=== PATIENT | female | born 1985 | race Caucasian/White ===

== ENCOUNTER 2016-10-07 07:55 | Emergency (ER) | payer SELFPAY ==
--- NOTE | 2016-10-07 08:12 | ER Document Report ---
ED GI/ - General Chief Complaint: Vaginal Bleeding Stated Complaint: VAGINAL BLEEDING Time seen by provider: 08:12 Mode of Arrival: Ambulatory Information source: Patient Notes: 30-year-old female complaining of vaginal bleeding that started as spotting yesterday and became redder and heavier this morning. She had some low back pain and suprapubic discomfort yesterday. She found out recently that she was with 3 home test. LMP September 08. This would be . No vaginal discharge. No dysuria. TRAVEL OUTSIDE OF THE [place] IN LAST 30 DAYS: No - Related Data Allergies/Adverse Reactions: promethazine [From Phenergan] Allergy (Verified 10/07/16 07:58) Past Medical History - General Information source: Patient - Social History Smoking Status: Current Every Day Smoker Frequency of alcohol use: None Drug Abuse: None Lives with: Family Family History: Reviewed & Not Pertinent Patient has suicidal ideation: No Patient has homicidal ideation: No - Medical History Medical History: Other - Second gestational diabetes Renal/ Medical History: Denies: Hx Peritoneal Dialysis Past Surgical History: Reports: Hx Appendectomy Review of Systems - Review of Systems Constitutional: No symptoms reported EENT: No symptoms reported Cardiovascular: No symptoms reported Respiratory: No symptoms reported Gastrointestinal: No symptoms reported Genitourinary: No symptoms reported Female Genitourinary: See HPI Musculoskeletal: No symptoms reported Skin: No symptoms reported Hematologic/Lymphatic: No symptoms reported Neurological/Psychological: No symptoms reported Physical Exam - Vital signs Vitals: Temp Pulse Resp BP Pulse Ox 98.1 F 84 16 133/97 H 100 10/07/16 07:59 10/07/16 07:59 10/07/16 07:59 10/07/16 07:59 10/07/16 07:59 Interpretation: Normal - General General appearance: Appears well, Alert In distress: None - HEENT Head: Normocephalic, Atraumatic Eyes: Normal Pupils: PERRL Neck: Supple - Respiratory Respiratory status: No respiratory distress Chest status: Nontender Breath sounds: Normal Chest palpation: Normal - Cardiovascular Rhythm: Regular Heart sounds: Normal auscultation Murmur: No - Abdominal Inspection: Normal Distension: No distension Bowel sounds: Normal Tenderness: Nontender Organomegaly: No organomegaly - Back Back: Normal, Nontender. No: CVA tenderness - Extremities General upper extremity: Normal inspection, Nontender, Normal color, Normal ROM , Normal temperature General lower extremity: Normal inspection, Nontender, Normal color, Normal ROM , Normal temperature, Normal weight bearing. No: Diana's sign - Neurological Neuro grossly intact: Yes Cognition: Normal Orientation: AAOx4 Ramone Coma Scale Eye Opening: Spontaneous Ramone Coma Scale Verbal: Oriented Ramone Coma Scale Motor: Obeys Commands [place] Coma Scale Total: 15 Speech: Normal Motor strength normal: LUE, RUE, LLE, RLE Sensory: Normal - Psychological Associated symptoms: Normal affect, Tearful - Skin Skin Temperature: Warm Skin Moisture: Dry Skin Color: Normal Skin irregularity: negative: Rash Course - Re-evaluation Re-evalutation: 10/07/16 10:18 Serum quantitative hCG is negative. Oh positive blood. CBC is normal. Urinalysis is normal no infection. She will call me back for the STD results. - Vital Signs Vital signs: Temp Pulse Resp BP Pulse Ox 98.1 F 84 16 136/78 H 100 10/07/16 07:59 10/07/16 07:59 10/07/16 07:59 10/07/16 08:33 10/07/16 07:59 - Laboratory Result Diagrams: 10/07/16 08:40 Laboratory results interpreted by me: 10/07/16 08:40 Urine Protein 30 H Urine Blood LARGE H Discharge - Discharge Clinical Impression: mild suprapubic discomfort, Delayed menses Condition: Good Disposition: HOME, SELF-CARE Instructions: Vaginal Bleeding ([facility]) Additional Instructions: Call me this afternoon at [phone] for the STD culture results Return to the emergency room any concerns Copy of labwork given to you Please complete the patient satisfaction survey if you get one, and return it.. If you do not receive a survey, then you can go to the [facility] website, [email or web address] and place your comments about your very good care. Thank you very much. It was a pleasure being your medical provider today. Referrals: JOSH DEL TORO FNP-C [Primary Care Provider] - Follow up as needed
[2016-10-07 09:01] LABS: ABSOLUTE BASOPHILS # (AUTO) 0.1 10^3/uL (0.0-0.2); ABSOLUTE EOSINOPHILS # (AUTO) 0.1 10^3/uL (0.0-0.6); ABSOLUTE LYMPHOCYTES (AUTO) 1.7 10^3/uL (0.5-4.7); ABSOLUTE MONOCYTES (AUTO) 0.4 10^3/uL (0.1-1.4); ABSOLUTE NEUT (AUTO) 3.5 10^3/uL (1.7-8.2); EOSINOPHILS % (AUTO) 1.4 % (0-6); HEMATOCRIT 43.3 % (36.0-47.0); HEMOGLOBIN 14.9 g/dL (12.0-15.5); HGB HCT DIFFERENCE 1.4; LYMPHOCYTES % (AUTO) 29.4 % (13-45); MEAN CORPUSCULAR HEMOGLOBIN 31.3 pg (27.0-33.4); MEAN CORPUSCULAR HGB CONC 34.3 g/dL (32.0-36.0); MEAN CORPUSCULAR VOLUME 91 fl (80-97); MONOCYTES % (AUTO) 6.8 % (3-13); RED BLOOD COUNT 4.75 10^6/uL (3.72-5.28); RED CELL DISTRIBUTION WIDTH 12.9 % (11.5-14.0); SEGMENTED NEUTROPHILS % (AUTO) 61.4 % (42-78); WHITE BLOOD COUNT 5.7 10^3/uL (4.0-10.5)
[2016-10-07 09:07] LABS: APPEARANCE,URINE SLIGHTLY-CLOUDY; BILIRUBIN,URINE NEGATIVE (NEGATIVE); GLUCOSE, URINE NEGATIVE (NEGATIVE); KETONES,URINE NEGATIVE (NEGATIVE); LEUKOCYTE ESTERASE,URINE NEGATIVE (NEGATIVE); NITRITE,URINE NEGATIVE (NEGATIVE); PROTEIN,URINE 30 mg/dL (NEGATIVE); URINE SPECIFIC GRAVITY 1.004; UROBILINOGEN,URINE NEGATIVE mg/dL (<2.0)
[2016-10-07 10:43] VITALS: BP 111/68
[2016-10-07 11:37] LABS: CHLAM PCR NOT DETECTED (NOT DETECT)
== END 2016-10-07 10:43 | disposition home or self-care (01) ==
LOC: ER 07:55
DX: N91.0 Primary amenorrhea (principal); R10.30 Lower abdominal pain, unspecified; N93.8 Other specified abnormal uterine and vaginal bleeding; F17.200 Nicotine dependence, unspecified, uncomplicated
CPT/HCPCS: 36415; 81001; 84702; 85025; 86900; 86901; 87491; 87591; 99284

== ENCOUNTER 2018-08-13 08:25 | Emergency (ER) | payer BC, MEDICAID ==
[2018-08-13 08:40] VITALS: BP 129/83
--- NOTE | 2018-08-13 09:26 | ER Document Report ---
HPI - HPI Time Seen by Provider: 08/13/18 09:07 Pain Level: 4 Notes: Patient is a 32-year-old female is approximately 20 weeks who presents to the emergency department complaining of nasal congestion/discharge, dry nonproductive cough, and sore throat that began over the last 1-2 days. Patient states that she has been diagnosed with flu A/B and strep in April and being she was told that she needs to get evaluated. No other concerns or complaints. She is eating and drinking without difficulty. Denies any headache, fever, neck pain, chest pain, palpitations, syncope, cough, shortness of breath, wheeze, dyspnea, abdominal pain, nausea/vomiting/diarrhea, urinary retention, dysuria, hematuria, or rash. - ROS Systems Reviewed and Negative: Yes All other systems reviewed and negative - CONSTITUTIONAL Constitutional: REPORTS: Fever. DENIES: Chills - EENT EENT: REPORTS: Sore Throat. DENIES: Ear Pain, Eye problems - NEURO Neurology: REPORTS: Headache. DENIES: Weakness, Vision blurred, Dizzinesss / Vertigo - CARDIOVASCULAR Cardiovascular: DENIES: Chest pain - RESPIRATORY Respiratory: REPORTS: Coughing. DENIES: Trouble Breathing - GASTROINTESTINAL Gastrointestinal: DENIES: Abdominal Pain, Black / Bloody Stools - URINARY Urinary: DENIES: Dysuria, Urgency, Frequency - REPRODUCTIVE Reproductive: REPORTS: : - MUSCULOSKELETAL Musculoskeletal: DENIES: Extremity pain Past Medical History - Social History Smoking Status: Never Smoker Chew tobacco use (# tins/day): No Frequency of alcohol use: None Drug Abuse: None Family History: Reviewed & Not Pertinent Patient has suicidal ideation: No Patient has homicidal ideation: No Renal/ Medical History: Denies: Hx Peritoneal Dialysis Past Surgical History: Reports: Hx Appendectomy Vertical Provider Document - CONSTITUTIONAL Agree With Documented VS: Yes Notes: PHYSICAL EXAMINATION: GENERAL: Well-appearing, well-nourished and in no acute distress. A&Ox4. Answers questions appropriately. Moves comfortably w/o notable distress HEAD: Atraumatic, normocephalic. EYES: Pupils equal round and reactive to light, extraocular movements intact, sclera anicteric, conjunctiva are normal. ENT: EAC clear b/l. TM's intact b/l without erythema, fluid, or perforation. Nares patent and with clear discharge. oropharynx mild erythema without exudates. 1+ tonsilar hypertrophy without erythema or exudate. No palatine shift. Uvula midline. No tongue protrusion. No drooling, hoarseness, or airway compromise. Moist mucous membranes. No sinus tenderness. NECK: Normal range of motion, supple without lymphadenopathy. No rigidity/meningismus. LUNGS: Breath sounds clear to auscultation bilaterally and equal. No wheezes rales or rhonchi. No retractions HEART: Regular rate and rhythm without murmurs, rubs, gallops. ABDOMEN: Soft, nontender, nondistended abdomen. No guarding, no rebound. normal bowel sounds present. No CVA tenderness bilaterally. NEUROLOGICAL: Normal speech, normal gait. Normal sensory, motor exams PSYCH: Normal mood, normal affect. SKIN: Warm, Dry, normal turgor, no rashes or lesions noted. - INFECTION CONTROL TRAVEL OUTSIDE OF THE [place] IN LAST 30 DAYS: No Course - Re-evaluation Re-evalutation: 08/13/18 09:48 Patient is an afebrile, well-hydrated, 32-year-old female who presents to the ED with acute URI, suspect viral. Vitals are acceptable. PE is otherwise unremarkable. Rapid strep negative with a throat culture pending. Influenza negative. No other labs or imaging warranted at this time based on H&P. Patient has no significant cardiopulmonary or immunocompromised medical conditions. Patient's lungs are clear to auscultation bilaterally without tachycardia, hypoxia, or tachypnea. Patient is tolerating p.o. without any difficulties. Low suspicion for any meningitis, sepsis, peritonsillar/pharyngeal abscess, respiratory compromise, severe dehydration, or other emergent systemic condition at this time. Patient is aware this condition can change from initial presentation and she needs to monitor symptoms closely. Conservative measures otherwise for symptoms. Recheck with your PCM in 3-5 days. Return to the ED with any worsening/concerning symptoms otherwise as reviewed in discharge. Patient is in agreement. - Vital Signs Vital signs: Temp Pulse Resp BP Pulse Ox 99 F 93 16 129/83 H 100 08/13/18 08:39 08/13/18 08:39 08/13/18 08:39 08/13/18 08:39 08/13/18 08:39 Discharge - Discharge Clinical Impression: Acute URI Condition: Stable Disposition: HOME, SELF-CARE Additional Instructions: Maintain adequate fluid intake Take meds as directed tylenol as needed Humidified air may help Wash your hands regularly Wear a mask when coughing F/u: with your PCM in 3-5 days for a recheck Return to the ED with any fever, worsening pain, chest pain, palpitations, syncope, worsening GONZÁLES, neck pain/stiffness, shortness of breath, wheezing, drooling, trouble swallowing/breathing, abdominal pain, n/v/d, rash, or worsening/concerning symptoms otherwise. Forms: Elevated Blood Pressure Referrals: JOSH DEL TORO, SUSANA [Primary Care Provider] - Follow up as needed
[2018-08-13 09:41] LABS: A TYPE INFLUENZA AG NEGATIVE (NEGATIVE); B INFLUENZA AG NEGATIVE (NEGATIVE)
== END 2018-08-13 10:05 | disposition home or self-care (01) ==
LOC: ER 08:25
DX: O26.892 Other specified pregnancy related conditions, second trimester (principal); J06.9 Acute upper respiratory infection, unspecified; R09.81 Nasal congestion; R09.89 Other specified symptoms and signs involving the circulatory and respiratory systems; R05 Cough; J02.9 Acute pharyngitis, unspecified; Z3A.20 20 weeks gestation of pregnancy
CPT/HCPCS: 87070; 87804; 87880; 99283

== ENCOUNTER 2019-01-02 17:52 | Inpatient (IN) | payer BC, MEDICAID ==
[2019-01-02] MEDS ORDERED: OXYTOCIN/NORMAL SALINE 20 UNIT/1,000 ML RTUINJ IV PRN (18:00)
[2019-01-02] MEDS ORDERED: RINGERS SOLUTION,LACTATED 300 ML IV ONE (18:00)
[2019-01-02] MEDS ORDERED: RINGERS SOLUTION,LACTATED 1,000 ML IV PRN (18:00)
[2019-01-02 18:46] LABS: ABSOLUTE BASOPHILS # (AUTO) 0.1 10^3/uL (0.0-0.2); ABSOLUTE EOSINOPHILS # (AUTO) 0.1 10^3/uL (0.0-0.6); ABSOLUTE MONOCYTES (AUTO) 0.7 10^3/uL (0.1-1.4); ABSOLUTE NEUT (AUTO) 8.8 10^3/uL (1.7-8.2); BASOPHILS % (AUTO) 0.6 % (0-2); EOSINOPHILS % (AUTO) 1.1 % (0-6); HEMATOCRIT 40.9 % (36.0-47.0); HEMOGLOBIN 14.1 g/dL (12.0-15.5); LYMPHOCYTES % (AUTO) 17.3 % (13-45); MEAN CORPUSCULAR HEMOGLOBIN 32.2 pg (27.0-33.4); MEAN CORPUSCULAR HGB CONC 34.4 g/dL (32.0-36.0); MEAN CORPUSCULAR VOLUME 93 fl (80-97); MONOCYTES % (AUTO) 6.3 % (3-13); PLATELET COUNT 182 10^3/uL (150-450); RED BLOOD COUNT 4.38 10^6/uL (3.72-5.28); RED CELL DISTRIBUTION WIDTH 13.8 % (11.5-14.0); SEGMENTED NEUTROPHILS % (AUTO) 74.7 % (42-78); TOTAL CELLS COUNTED % (AUTO) 100 %; WHITE BLOOD COUNT 11.8 10^3/uL (4.0-10.5)
--- NOTE | 2019-01-02 19:24 | Admission Physical ---
Datetime Report Generated by CPN: 01/02/2019 19:23 CURRENT ADMISSION Chief Complaint: Uterine Contractions Indication for Induction: Not Applicable Admit Impression : Term, Intrauterine ; Active Labor; Intact Membranes Admit Plan: Admit to Unit; Initiate Labor Protocol ALLERGIES Medication Allergies: Yes Medication Allergies: promethazine (01/02/2019) Latex: Latex Allergies OBSTETRICAL HISTORY EDC: 01/02/2019 00:00 : 5 Para: 3 Term: 3 : 0 SAB: 1 IAB: 0 Ectopic: 0 Livin Cesareans: 0 VBACs: 0 Multiple Births: 0 Gestational Diabetes: Yes Rh Sensitization: No Incompetent Cervix: No FLO: No Infertility: No ART Treatment: No Uterine Anomaly: No IUGR: No Hx Previous C/S: No Macrosomia: No Hx Loss/Stillborn: No PIH: No Hx : No Placenta Previa/Abruption: No Depression/PP Depression: Yes PTL/PROM: No Post Hemorrhage: No SEE RECORDS Alcohol: No Marijuana : No Cocaine: No Other Illicit Drugs: No Cigarettes: Never Smoker. [id number] MEDICAL HISTORY Diabetes: No Diabetes Type: Gestational Diabetes Blood Transfusion: No Pulmonary Disease (Asthma, TB): No Breast Disease: No Hypertension: No [employer] Surgery: No Heart Disease: No Hosp/Surgery: No Autoimmune Disorder: No Anesthetic Complications: No Kidney Disease: No Abnormal Pap Smear: Yes Neuro/Epilepsy: No Psychiatric Disorders: No Other Medical Diseases: No Hepatitis/Liver Disease: No Significant Family History: No Varicosities/Phlebitis: No Trauma/Violence : No Thyroid Dysfunction: No Medical History Comments: [id number] Anxiety_depression INFECTIOUS HISTORY Gonorrhea: No Genital Herpes: No Chlamydia: No Tuberculosis: No Syphilis: No Hepatitis: No HIV/AIDS Exposure: No Rash or Viral Illness: No HPV: No PHYSICAL EXAM General: Normal HEENT: Normal Neurologic: Normal Thyroid: Deferred Heart: Normal Lungs: Normal Breast: Deferred Back: Normal Abdomen: Normal Genitourinary Exam: Normal Extremities: Normal DTRs: Normal Pelvic Type: Adequate Vital Signs: Reviewed VAGINAL EXAM Dilatation: 4 Effacement: 50 Station: -2 Contraction Comments: q 2-3 FETUS A EGA: 40.0 Monitoring: External US FHR- Baseline: 135 Variability: Moderate 6-25bpm Accelerations: 15X15 Decelerations: None FHR Category: Category I Presentation: Vertex Admit Comment: 33yo at 40+0ega presents from office due to A1GDM and polyhydramnios. She presented however with regular uterine ctx. Upon discussion of plan of care patient reports SROM. Cvx 3-4cm and attempted to guide head onto cvx while evacuated some more fluid to keep head applied to cervix. NO out of bed priveleges at this time. H/o LEEP 12/2017. A1GDM with good control. MVP 9.2cm in office today. Reviewed extensively polyhydramnios and risks during labor. Admit to labor and delivery for active labor with SROM and anticipate . PLANS FOR LABOR AND DELIVERY Labor and Delivery: None Pain Management: Natural Feeding Preference: Breast Benefit of Breast Feed Discussed: Yes Circumcision: N/A INFORMED CONSENT Informed Consent Obtained: Vaginal Delivery; Risks, Benefits and Alternatives Discussed Signature: with User ID: [email or web address]
[2019-01-02] MEDS ORDERED: MISOPROSTOL 0.2 MG TABLET ONE (19:26)
[2019-01-02] MEDS ORDERED: OXYTOCIN 10 UNIT/ML VIAL ONE (19:26)
[2019-01-02] MEDS ORDERED: OXYTOCIN/NORMAL SALINE 20 UNIT/1,000 ML RTUINJ ONE (19:26)
[2019-01-02] MEDS ORDERED: LIDOCAINE 1% INJ-PF (10 MG/ML) 30 ML SDV ONE (19:26)
[2019-01-02 19:35] LABS: URINE AMPHETAMINES SCREEN NEGATIVE; URINE BARBITURATES SCREEN NEGATIVE; URINE BENZODIAZEPINES SCREEN NEGATIVE; URINE COCAINE SCREEN NEGATIVE; URINE MARIJUANA (THC) SCREEN NEGATIVE; URINE METHADONE SCREEN NEGATIVE; URINE PHENCYCLIDINE SCREEN NEGATIVE
[2019-01-03] MEDS ORDERED: ACETAMINOPHEN 325 MG TABLET PO PRN (00:23)
[2019-01-03] MEDS ORDERED: BENZOCAINE/MENTHOL AEROSOL SPRAY 56 ML TOP PRN (00:23)
[2019-01-03] MEDS ORDERED: DIBUCAINE 1% OINTMENT 56 GM TP PRN (00:23)
[2019-01-03] MEDS ORDERED: GLYCERIN/WITCH HAZEL LEAF 1 EACH MED..WIPE TP PRN (00:23)
[2019-01-03] MEDS ORDERED: NA PHOS,M-B/NA PHOS,DI-BA (ADULT) 133 ML ENEMA PR PRN (00:23)
[2019-01-03] MEDS ORDERED: ACETAMINOPHEN WITH CODEINE #3 TABLET PO PRN ×2 (00:23)
[2019-01-03] MEDS ORDERED: OXYTOCIN/NORMAL SALINE 20 UNIT/1,000 ML RTUINJ IV PRN (00:23)
[2019-01-03] MEDS ORDERED: MEASLES,MUMPS&RUBELLA VACC/PF 0.5 ML VIAL SUBCUT PRN (00:23)
[2019-01-03] MEDS ORDERED: DIPH/PERTUSS(ACELL)/TETANUS VAC/PF 0.5 ML SYR (>=10YO) IM PRN (00:23)
[2019-01-03] MEDS ORDERED: ZOLPIDEM TARTRATE 5 MG TABLET PO PRN (00:23)
[2019-01-03] MEDS ORDERED: MAGNESIUM HYDROXIDE SUSP 30 ML UDCUP PO PRN (00:23)
[2019-01-03] MEDS ORDERED: PSEUDOEPHEDRINE HCL 30 MG TABLET PO PRN (00:23)
[2019-01-03] MEDS ORDERED: DIPHENHYDRAMINE HCL 25 MG CAPSULE PO PRN (00:23)
--- NOTE | 2019-01-03 01:32 | Delivery Summary ---
Del Sum A-C Datetime Report Generated by CPN: 01/03/2019 01:31 DELIVERY PERSONNEL DELIVERY PERSONNEL: [id number] Delivery Doctor:: Darlene Cantrell MD Labor and Delivery Nurse:: Hillary Patel RNhogshead mat inspector Nurse:: Cori Blair RN MATERNAL INFORMATION Delivery Anesthesia: None Medications After Delivery: Pitocin Drip 20 Units/1000ml NSS Estimated Blood Loss (ml): 200 Delivery QBL Comment: 200 Maternal Complications: None Provider Comments: VFI delivered in ARAM presentation. No nuchal cord. Shoulders and body delivered without difficulty. Cord doubly clamped and cut and to maternal abdomen for NRP. Placenta delivered intact spontaneously. FF at U. No perineal lacerations. Mother and baby stable upon provider leaving the room. LABOR SUMMARY EDC: 01/02/2019 00:00 No. Babies in Womb: 1 Labor Anesthesia: None LABOR INFORMATION Reason for Induction: Not Applicable Onset of Labor: 01/02/2019 21:18 Complete Dilatation: 01/02/2019 23:23 Group B Beta Strep: neg Steroids Given: None Reason Steroids Not Administered: Not Applicable MEMBRANES Membranes Rupture Method: Spontaneous Rupture of Membranes: 01/02/2019 19:02 Length of Rupture (hr): 4.93 Amniotic Fluid Color: Clear Amniotic Fluid Amount: Large Amniotic Fluid Odor: None STAGES OF LABOR Stage 1 hr: 2 Stage 1 min: 5 Stage 2 hr: 0 Stage 2 min: 35 Stage 3 hr: 0 Stage 3 min: 4 Total Time in Labor hr: 2 Total Time in Labor min: 44 VAGINAL DELIVERY Episiotomy: None Laceration #1: None Laceration Extension #1: N/A Laceration Repair: Not Applicable Sponge Count Correct: Yes Sharps Count Correct: Yes BABY A INFORMATION Delivery Date/Time: 01/02/2019 23:58 Method of Delivery: Vaginal Born in Route : No : N/A Forceps: N/A Vacuum Extraction: N/A Shoulder Dystocia : No PRESENTATION/POSITION BABY A Presentation: Cephalic Cephalic Presentation: Vertex Vertex Position: Left Occipital Anterior Breech Presentation: N/A PLACENTA INFORMATION BABY A Placenta Delivery Time : 01/03/2019 00:02 Placenta Method of Delivery: Spontaneous Placenta Status: Delivered SCORES BABY A Heart Rate 1 min: >100 bpm Resp Effort 1 min: Good Cry Reflex Irritability 1 min: Cough or Sneeze or Pulls Away Muscle Tone 1 min: Active Motion Color 1 min: Body [place], Extremities Blue Resuscitation Effort 1 min: Tactile Stimulation SCORE 1 MIN: 9 Heart Rate 5 min: >100 bpm Resp Effort 5 min: Good Cry Reflex Irritability 5 min: Cough or Sneeze or Pulls Away Muscle Tone 5 min: Active Motion Color 5 min: Body [place], Extremities Blue Resuscitation Effort 5 min: Tactile Stimulation SCORE 5 MIN: 9 INFORMATION BABY A Gestational Age at Delivery: 40.0 Gestational Status: Full Term- 39- 40.6 Weeks Infant Outcome : Liveborn Condition : Stable Sex: Female IDENTIFICATION BABY A Verification Date/Time: 01/03/2019 00:55 ID Band Number: [id number] Mother's Name Verified: Yes Infant RN Verifying Infant: Linda Houston WEIGHT/LENGTH BABY A Infant Birthweight (gm): 3425 Weight (lb): 7 Weight (oz): 9 Infant Length (in): 20.25 Length (cm): 51.44 CORD INFORMATION BABY A Nuchal Cord : N/A Cord Blood Taken: Yes-For Eval (Mom's Blood Type - or O+) Infant Suction: Mouth; Nose ASSESSMENT BABY A Skin to Skin: Yes Transferred To: Remains with Mother SIGNATURES Signature: with User ID: [email or web address]
[2019-01-03] MEDS: IBUPROFEN 800 MG TABLET PO SCH ×3 (05:10→21:28)
[2019-01-03] MEDS: SENNOSIDES/DOCUSATE 8.6-50 MG 1 EACH TABLET PO SCH (09:51)
[2019-01-03] MEDS: FERROUS SULFATE 325 MG TABLET PO SCH ×2 (09:51→17:22)
[2019-01-03] MEDS: FAMOTIDINE 20 MG TABLET PO SCH ×2 (09:51→21:28)
[2019-01-03] MEDS: DOCUSATE SODIUM 100 MG CAPSULE PO SCH ×2 (09:51→17:22)
[2019-01-03] MEDS: PRENATAL VITAMIN W DHA CAPSULE PO SCH (09:51)
--- NOTE | 2019-01-03 10:08 | PDOC PROGRESS REPORT ---
Subjective-OB Progress Note for:: 01/03/19 - PP Day #1, doing well, , no complaints, Hx GDM and Polyhydramnios, Physical Exam (OB) Vital Signs: Temp Pulse Resp BP Pulse Ox 98.4 F 75 16 105/54 L 99 01/03/19 08:43 01/03/19 08:43 01/03/19 08:43 01/03/19 08:43 01/03/19 08:43 Intake & Output 01/02/19 01/03/19 01/04/19 06:59 06:59 06:59 Weight 71.4 kg - General General Appearance: Appears well, Alert - PIH/Pre-Eclampsia DTR's: 1 + Clonus: Negative Headache: Absent Epigastric Pain: No Visual Changes: No - Lochia Lochia Amount: Scant < 10 ml Lochia Color: Rubra/Red - Abdomen Description: Soft, Round Hernia Present: No Fundal Description: Firm, Midline Fundal Height: u/u - u/2 - Respiratory Respiratory Status: No respiratory distress - Abdominal Inspection: Normal Distension: No distension - Genitourinary Genitourinary Note: voiding - Extremities Upper extremity: Normal inspection Lower extremities: Normal inspection - Neurological Cognition: Normal Orientation: AAOx4 - Psychological Associated symptoms: Normal affect, Normal mood - Skin Skin Temperature: Warm Skin Moisture: Dry Objective-Diagnostic Laboratory: 01/02/19 18:24 01/02/19 01/02/19 18:24 18:24 WBC 11.8 H RBC 4.38 Hgb 14.1 Hct 40.9 MCV 93 MCH 32.2 MCHC 34.4 RDW 13.8 Plt Count 182 Seg Neutrophils % 74.7 Lymphocytes % 17.3 Monocytes % 6.3 Eosinophils % 1.1 Basophils % 0.6 Absolute Neutrophils 8.8 H Absolute Lymphocytes 2.0 Absolute Monocytes 0.7 Absolute Eosinophils 0.1 Absolute Basophils 0.1 Blood Type O POSITIVE Antibody Screen NEGATIVE Assessment and Plan(PN) - Assessment and Plan (1) Normal course Is this a current diagnosis for this admission?: Yes (2) Gestational diabetes mellitus (GDM) in childbirth, diet controlled Is this a current diagnosis for this admission?: Yes (3) Polyhydramnios affecting Is this a current diagnosis for this admission?: Yes (4) Vaginal delivery Is this a current diagnosis for this admission?: Yes - Time Spent with Patient Time with patient: Less than 15 minutes Medications reviewed and adjusted accordingly: Yes - Disposition Anticipated Discharge: Home Within: within 24 hours
[2019-01-04] MEDS: IBUPROFEN 800 MG TABLET PO SCH ×2 (05:30→15:45)
[2019-01-04 07:26] LABS: HEMATOCRIT 37.2 % (36.0-47.0); HEMOGLOBIN 12.8 g/dL (12.0-15.5); MEAN CORPUSCULAR HEMOGLOBIN 32.5 pg (27.0-33.4); MEAN CORPUSCULAR HGB CONC 34.4 g/dL (32.0-36.0); MEAN CORPUSCULAR VOLUME 95 fl (80-97); PLATELET COUNT 184 10^3/uL (150-450); RED BLOOD COUNT 3.93 10^6/uL (3.72-5.28); RED CELL DISTRIBUTION WIDTH 13.8 % (11.5-14.0); WHITE BLOOD COUNT 13.7 10^3/uL (4.0-10.5)
[2019-01-04 08:44] VITALS: BP 100/65
[2019-01-04] MEDS: FERROUS SULFATE 325 MG TABLET PO SCH (09:47)
[2019-01-04] MEDS: SENNOSIDES/DOCUSATE 8.6-50 MG 1 EACH TABLET PO SCH (09:47)
[2019-01-04] MEDS: FAMOTIDINE 20 MG TABLET PO SCH (09:47)
[2019-01-04] MEDS: DOCUSATE SODIUM 100 MG CAPSULE PO SCH (09:47)
[2019-01-04] MEDS: PRENATAL VITAMIN W DHA CAPSULE PO SCH (09:47)
--- NOTE | 2019-01-04 13:00 | PDOC DISCHARGE SUMMARY ---
Final Diagnosis Discharge Date: 01/04/19 - Final Diagnosis (1) Vaginal delivery Is this a current diagnosis for this admission?: Yes (2) Gestational diabetes mellitus (GDM) in childbirth, diet controlled Is this a current diagnosis for this admission?: Yes (3) Normal course Is this a current diagnosis for this admission?: Yes (4) Polyhydramnios affecting Is this a current diagnosis for this admission?: Yes Discharge Data - Discharge Medication Home Medications: Pnv No.95/Ferrous Fum/Folic AC [ Multivitamin Tablet] 1 tab PO DAILY 01/02/19 Reason(s) for Admission: Onset of Labor, Gestional Diabetes Procedures: NST Intrapartum Procedure(s): Spontaneous Vaginal Delivery - Diagnosis Test Laboratory: Temp Pulse Resp BP Pulse Ox 97.4 F 80 12 100/65 97 01/04/19 12:28 01/04/19 12:28 01/04/19 12:28 01/04/19 12:28 01/04/19 12:28 01/02/19 01/02/19 01/04/19 18:00 18:24 06:47 RBC 4.38 3.93 Hgb 14.1 12.8 Hct 40.9 37.2 Urine Opiates Screen NEGATIVE - Discharge information/Instructions Discharge Activity: Balance Activity w/Rest, Pelvic Rest Discharge Diet: Regular Disposition: HOME, SELF-CARE Follow up with: [facility] in: 4, Weeks
== END 2019-01-04 15:49 | disposition home or self-care (01) | DRG 807 ==
LOC: LC 17:52 → LR 18:05 → 2S 01-03 02:10
PROVIDERS: ADMIT Student in an Organized Health Care Education/Training Program; ATTEND Student in an Organized Health Care Education/Training Program
PROC: 10E0XZZ Delivery of Products of Conception, External Approach (ICD-10-PCS; principal; 2019-01-02)
DX: O24.420 Gestational diabetes mellitus in childbirth, diet controlled (principal); Z37.0 Single live birth; O40.3XX0 Polyhydramnios, third trimester, not applicable or unspecified; Z3A.40 40 weeks gestation of pregnancy
CPT/HCPCS: 36415; 59025; 80307; 82962; 85025; 85027; 86592; 86850; 86900; 86901; J2590; J3490